=== PATIENT | male | born 1950 | race Caucasian/White ===

== ENCOUNTER 2017-02-19 05:17 | Inpatient (IN) | payer OTHER ==
[~2017-02-19] VITALS: Ht 170.2 cm; Wt 70.3 kg
[~2017-02-19 05:17] MED LIST: ASPIRIN EC81 M1 PO; ATORVASTATIN CA40 M1 PO; BACTRIM 400-801 EACH PO; CELLCEPT250 MG PO; FLOMAX0.4 M1 PO; LABETALOL HCL100 M1 PO; MAGNESIUM400 M1 PO; NORVASC5 M1 PO; PEPCID40 M1 PO; PREDNISONE5 M1 PO; PROGRAF1 M1 PO
--- NOTE | 2017-02-19 10:05 | Admission Core Measures ---
Admission Meds I reviewed the following Meds: Current Medications Sig/Isaiah Start time Last Medication Dose Stop Time Status Admin Acetaminophen 975 MG ONCE 02/19 0000 NR (Tylenol) 02/19 2359 Cefazolin Sodium 2,000 MG ONCE 02/19 0000 NR (Kefzol-Ancef Inj) 02/19 2359 Oxycodone HCl 10 MG ONCE 02/19 0000 NR (Roxicodone) 02/19 2359 Acute Coronary Syndrome Inclusion Criteria ACS Diagnosis No Inpatient Core Measures LDL Reminder: If No, please order W/I first 24hr of stay Congestive Heart Failure Inclusion Criteria CHF Diagnosis No Cerebrovascular accident Inclusion Criteria CVA/TIA Diagnosis No Inpatient Core Measures Bedside Swallow Eval Reminder: If BSE failed, place ST order Antithrombotic Reminder: Order Antithrombotic Medication by end of day 2 Antithrombotic Reminder: Document Reason Antithrombotic Not ordered by end of day 2 AFIB/Flutter Reminder: If Present, add to problem list AFIB/Flutter Reminder: Order Anticoag Medication for pts with AFIB/Flutter Atherosclerosis Reminder: If Present, add to problem list LDL Reminder: If No, please order W/I first 24hr of stay PT Order Reminder: If No, please order Venous thromboembolism Inpatient Core Measures VTE Risk Factors: Age > 40, Surgery No [facility] VTE prophylaxis d/t No contraindications No VTE Pharm Prophylaxis d/t No contraindications Inclusion Criteria - Per Current guidelines, there needs to be overlap - treatment for the first 5 days of Warfarin therapy. - Parenteral Anticoagulation (IV or SC) needs to be - given along with Warfarin therapy. VTE Diagnosis No VTE Type NONE VTE Confirmed by (Test) NONE Problem List As ranked by this Provider includes Assessment & Plan 1. Status post total hip replacement, right HOME MEDS Home Med List Amlodipine Besylate 5 MG TABLET 1 TAB PO BID HTN (Reported) Aspirin (Ecotrin*) 81 MG TABLET.DR 1 TAB PO BID PROPHO (Reported) Atorvastatin Calcium 40 MG TABLET 1 TAB PO BID CHOLESTEROL (Reported) Famotidine (Pepcid) 40 MG TABLET 1 TAB PO DAILY PRN GERD (Reported) Labetalol HCl 100 MG TABLET 1.5 TAB PO BID HTN (Reported) Magnesium Oxide (Magnesium) 400 MG CAPSULE 1 CAP PO BID HYPOMAGNESIUM ( Reported) Mycophenolate Mofetil 250 MG CAPSULE 3 CAP PO BID KIDNEY TRANSPLANT (Reported ) Prednisone 5 MG TABLET 1 TAB PO DAILY KIDNEY TRANSPLANT (Reported) Sulfamethoxazole/Trimethoprim (Bactrim 400-80 MG Tablet) 400 MG-80 MG TABLET 1 TAB PO DAILY KIDNEY TRANSPLANT (Reported) Tacrolimus (Prograf) 1 MG CAPSULE 2 CAP PO BID KIDNEY TRANSPLANT (Reported) Tamsulosin HCl (Flomax) 0.4 MG CAP.ER.24H 1 CAP PO DAILY KIDNEY TRANSPLANT ( Reported)
[2017-02-19] MEDS ORDERED: ASPIRIN EC81 M1 PO (10:43)
[2017-02-19] MEDS ORDERED: COLACE100 M1 PO (10:43)
[2017-02-19] MEDS ORDERED: MS CONTIN15 M2 PO (10:43)
[2017-02-19] MEDS ORDERED: DILAUDID2 M1 PO (10:43)
[2017-02-19] MEDS ORDERED: MIRALAX17 G1 PO (10:43)
--- NOTE | 2017-02-19 10:47 | Patient Discharge Instructions ---
Discharge Instructions General Discharge Information You were seen/treated for: Right hip degenerative joint disease You had these procedures: Right total hip arthroplasty Watch for these problems: Significantly increased pain, difficulty in breathing, or temperatures over 101 Increased redness or drainage from incision No bath, but you may shower: Yes Other wound care: Daily dry dressing change Special Instructions: See preprinted information booklet Diet Continue normal diet: Yes Activity Activity Self Limited: Yes Other activity limits: Ambulate using a walker as instructed by physical therapy No driving until okay with your surgeon and off all pain medications Acute Coronary Syndrome Inclusion Criteria At DC or during hospital stay patient has or had the following: ACS DIAGNOSIS No Discharge Core Measures Meds if any: Prescribed or Continued at Discharge Meds if any: NOT Prescribed or Continued at Discharge Congestive Heart Failure Inclusion Criteria At DC or during hospital stay patient has or had the following: CHF DIAGNOSIS No Discharge Core Measures Meds if any: Prescribed or Continued at Discharge Meds if any: NOT Prescribed or Continued at Discharge Cerebrovascular accident Inclusion Criteria At DC or during hospital stay patient has or had the following: CVA/TIA Diagnosis No Discharge Core Measures Meds if any: Prescribed or Continued at Discharge Meds if any: NOT Prescribed or Continued at Discharge Venous thromboembolism Inclusion Criteria VTE Diagnosis No VTE Type NONE VTE Confirmed by (Test) NONE Discharge Core Measures - Per Current guidelines, there needs to be overlap - treatment for the first 5 days of Warfarin therapy. - If discharged on Warfarin prior to 5 days of - overlap therapy, the patient will need to be - assessed for post discharge needs including - *Post discharge parental anticoagulation - *Warfarin and/or parental anticoagulation education - *Follow up date to check INR post discharge At least 5 days overlap therapy as Inpatient No Meds if any: Prescribed or Continued at Discharge Note: Overlap Therapy is Warfarin and Anticoagulant Meds if any: NOT Prescribed or Continued at Discharge
--- NOTE | 2017-02-19 13:38 | RADIOLOGY REPORT ---
EXAMINATION: XR HIP, RIGHT CLINICAL INFORMATION: Right hip replacement COMPARISON: None TECHNIQUE: Two views of the right hip. FINDINGS: Prosthetic components of the right total hip arthroplasty are appropriately aligned. No periprosthetic fracture. Gas from recent surgery is present in the surrounding soft tissues. There is a drain in place in the lateral soft tissues. IMPRESSION: Normal postoperative appearance of the right total hip prosthesis.
--- NOTE | 2017-02-19 13:46 | Cons- Medical ---
LES STEVEN MD,JAKOB 02/19/17 1345: General Information and HPI Consulting Request Date of Consult: 02/19/17 Requested By: SONAM ALEXANDRA MD Reason for Consult: Postoperative medical optimization Source of Information: patient, old records Exam Limitations: no limitations History of Present Illness: 66-year-old man with past medical history significant for ankylosing spondylitis , status post kidney transplant August 2016, benign prostatic hyperplasia, hypertension and hyperlipidemia admitted to [facility] for Right hip replacement. According to the patient he started having right-sided hip pain in spring 2015 and has been using cane to walk around since April 2016. He was recommended by his primary care doctor to get an evaluation for his right hip pain by orthopedics. Patient is currently status post right hip replacement day 0 and postoperative x-ray shows, Normal postoperative appearance of the right total hip prosthesis. Review of system was negative for any headaches, acute visual change, chest pain , limitations, shortness of breath, vomiting, abdominal pain, fever, rash, or lower extremity edema. Allergies/Medications Allergies: Coded Allergies: No Known Allergies (02/17/17) Current Medications: Current Medications Sig/Isaiah Start time Last Medication Dose Route Stop Time Status Admin Acetaminophen 0 .STK-MED ONE 02/19 1009 DC PO Acetaminophen 975 MG ONCE 02/19 0000 NR PO 02/19 2359 Cefazolin Sodium 2,000 MG ONCE 02/19 0000 NR IV 02/19 2359 Oxycodone HCl 0 .STK-MED ONE 02/19 1009 DC PO Oxycodone HCl 10 MG ONCE 02/19 0000 NR PO 02/19 2359 Review of Systems Review of Systems Constitutional: Denies: chills, fever. EENTM: Denies: visual changes. Cardiovascular: Denies: chest pain, palpitations. Respiratory: Denies: cough, short of breath. GI: Denies: abdominal pain, nausea, vomiting. Genitourinary: Denies: discharge. Musculoskeletal: Denies: back pain, muscle pain. Skin: Denies: erythema. All Other Systems: Reviewed and Negative Past History Medical History Cardiovascular: hypertension, hyperlipidemia Renal: renal transplant Other Medical Hx: Benign prostatic hyperplasia Surgical History Surgical History: hip replacement Family History Relations & Conditions If Any: MOTHER FH: lung cancer FATHER FH: myocardial infarction, Onset: 60+. Psychosocial History Where Do You Live? Home Who Do You Live With? spouse Services at Home: None Primary Language: Ukrainian Smoking Status: Never Smoked ETOH Use: SOCIAL Illicit Drug Use: denies illicit drug use Functional Ability ADLs Independent: dressing, eating, toileting, bathing. Ambulation: cane IADLs Independent: telephone, medication admin. Employment History Profession/Employer: [employer] Exam & Diagnostic Data Last 24 Hrs of Vital Signs/I&O Vital Signs Date Time Temp Pulse Resp B/P B/P Pulse O2 O2 Flow FiO2 Mean Ox Delivery Rate 02/19 1642 65 130/70 02/19 1641 65 130/70 02/19 1615 97.7 53 20 130/64 98 Room Air 02/19 1415 97.7 65 18 138/78 97 Nasal 1.0L Cannula Physical Exam General Appearance: well developed/nourished, no apparent distress, alert, awake , comfortable Head: atraumatic Eyes: Bilateral: normal appearance. Neck: normal inspection, supple Respiratory: normal breath sounds, no respiratory distress, lungs clear Cardiovascular: regular rate/rhythm Gastrointestinal: soft, non-tender Extremities: normal inspection, Right Hip dressing Skin: normal color, warm/dry Last 24 Hrs of Labs/Yohannes: No current labs Diagnostic Data Other Results Normal postoperative appearance of the right total hip prosthesis. Assessment/Plan Assessment/Plan 66-year-old man with past medical history significant for ankylosing spondylitis , status post kidney transplant August 2016, benign prostatic hyperplasia, hypertension and hyperlipidemia admitted to [facility] for Right hip replacement. Medical team is consulted for medical comanagement. Status post right total hip replacement Current pain score 4 Continue with appropriate analgesics as per surgical team recommendations Currently on Zofran when necessary for nausea, watch for QTC prolongation if patient requires Zofran frequently Bowel regimen at all times to prevent narcotic induced constipation DVT prophylaxis as per surgical team recommendations Advanced diet as tolerated Physical therapy as appropriate Order CBC/BEP for tomorrow History of renal TRANSPLANT Patient has past medical history significant for recent renal transplant in August 2016. Currently on Tacrolimus, mycophenolate, Bactrim SS and stereoids Maintain strict input/output Gentle IV hydration History of ankylosing spondylitis Patient has long-standing history of ankylosing spondylitis which was diagnosed earlier in . Provide appropriate Physical therapy History of hypertension Patient has past medical history significant for hypertension. Current blood pressure 130/64. Restart home medications which include amlodipine 10 mg and labetalol 300 mg by mouth twice a day. Hold off on antihypertensive medications if blood pressure less than 90/60. History of dyslipidemia Patient is currently on 40 mg Lipitor twice a day. Since patient does not have any medical history of coronary artery disease, moderate to low intensity statin at 40 mg daily dose should be enough. Kindly confirm the dosage. History of benign prostatic hyperplasia Continue with 0.4 mg of tamsulosin Patient is full code Patient is on pain management Diet as tolerated Problem List: 1. Status post total hip replacement, right Copies To: ROGELIO CARRILLO MD Consult Acknowledgment - Thank you for your consult request. ROGELIO CARRILLO MD 02/20/17 0751: General Information and HPI Consulting Request Requested By: SONAM ALEXANDRA MD Source of Information: patient, family Exam Limitations: no limitations Allergies/Medications Home Med List: Amlodipine Besylate (Norvasc) 5 MG TABLET 5 MG PO BID BLOOD PRESSURE ( Reported) Aspirin (Ecotrin*) 81 MG TABLET.DR 1 TAB PO BID PROPHO (Reported) Aspirin (Ecotrin*) 81 MG TABLET.DR 2 TAB PO BID BLOOD THINNER Atorvastatin Calcium 40 MG TABLET 1 TAB PO BID CHOLESTEROL (Reported) Docusate Sodium (Colace) 100 MG CAPSULE 1 CAP PO BID CONSTIPATION Famotidine (Pepcid) 40 MG TABLET 1 TAB PO DAILY PRN GERD (Reported) Hydromorphone HCl (Dilaudid) 2 MG TABLET 1-2 TAB PO Q4-6 PRN PAIN Labetalol HCl 100 MG TABLET 150 MG PO BID blood pressure control (Reported) Magnesium Oxide (Magnesium) 400 MG CAPSULE 1 CAP PO BID HYPOMAGNESIUM ( Reported) Morphine Sulfate (Ms Contin) 15 MG TABLET.ER 1 TAB PO Q12 PRN PAIN Mycophenolate Mofetil (Cellcept) 250 MG CAPSULE 2 CAP PO BID transplant ( Reported) Polyethylene Glycol 3350 (Miralax) 17 GRAM POWD.PACK 1 PAC PO DAILY CONSTIPATION dissolve in water Prednisone 5 MG TABLET 1 TAB PO DAILY KIDNEY TRANSPLANT (Reported) Sulfamethoxazole/Trimethoprim (Bactrim 400-80 MG Tablet) 400 MG-80 MG TABLET 1 TAB PO DAILY KIDNEY TRANSPLANT (Reported) Tacrolimus (Prograf) 1 MG CAPSULE 1 MG PO BID TRANSPLANT (Reported) Tamsulosin HCl (Flomax) 0.4 MG CAP.ER.24H 1 CAP PO DAILY KIDNEY TRANSPLANT ( Reported) Current Medications: Current Medications Sig/Isaiah Start time Last Medication Dose Route Stop Time Status Admin Acetaminophen 1,000 MG Q8 02/19 1400 DC 02/20 IV 02/20 0601 0605 Acetaminophen 0 .STK-MED ONE 02/19 1009 DC PO Acetaminophen 975 MG ONCE 02/19 0000 DC PO 02/19 2359 Amlodipine Besylate 10 MG BID 02/19 2200 CAN PO Amlodipine Besylate 10 MG BID 02/19 2200 CAN PO Amlodipine Besylate 5 MG BID 02/19 2200 AC 02/20 PO 0631 Aspirin 162 MG BID 02/19 2200 AC 02/19 PO 2126 Atorvastatin Calcium 40 MG BID 02/19 2200 AC 02/19 PO 1843 Cefazolin Sodium 1,000 MG IQ8 02/19 1600 DC 02/19 IV 02/20 0001 2303 Cefazolin Sodium 2,000 MG ONCE 02/19 0000 DC IV 02/19 2359 Dextrose/Sodium 1,000 ML .Q20H 02/19 1415 AC 02/19 Chloride IV 1452 Docusate Sodium 100 MG BID 02/19 2200 AC 02/19 PO 2126 Famotidine 20 MG DAILY 02/20 1000 AC PO Fentanyl Citrate 250 MCG .STK-MED ONE 02/19 0953 DC IM 02/19 0954 Fentanyl Citrate 100 MCG .STK-MED ONE 02/19 0943 DC IM 02/19 0944 Hydrocortisone 100 MG .STK-MED ONE 02/19 0953 DC Sodium Succinate IM 02/19 0954 Hydromorphone HCl 2 MG Q4P PRN 02/19 1415 AC 02/19 PO 2304 Hydromorphone HCl 4 MG Q4P PRN 02/19 1415 AC 02/20 PO 0414 Hydromorphone HCl 2 MG .STK-MED ONE 02/19 1316 DC IM 02/19 1317 Hydromorphone HCl 2 MG .STK-MED ONE 02/19 1036 DC IM 02/19 1037 Labetalol HCl 150 MG BID 02/190 DC PO Labetalol HCl 300 MG BID 02/19 2200 DC 02/19 PO 1642 Labetalol HCl 300 MG BID 02/19 2200 CAN PO Labetalol HCl 150 MG BID 02/19 2200 AC 02/20 PO 0631 Magnesium Oxide 400 MG BID 02/19 2200 AC 02/19 PO 2126 Midazolam HCl 5 MG .STK-MED ONE 02/19 0942 DC IM 02/19 0943 Morphine Sulfate 2 MG Q2P PRN 02/19 1415 AC 02/20 IV 0634 Mycophenolate Mofetil 1,000 MG BID 02/19 2200 CAN PO Mycophenolate Mofetil 500 MG BID 02/19 2200 AC 02/20 PO 0608 Ondansetron HCl 4 MG Q6P PRN 02/19 1415 AC 02/19 IV 1452 Oxycodone HCl 0 .STK-MED ONE 02/19 1009 DC PO Oxycodone HCl 10 MG ONCE 02/19 0000 DC PO 02/19 2359 Polyethylene Glycol 17 GM DAILY 02/20 1000 AC PO Prednisone 5 MG DAILY 02/20 1000 AC PO Promethazine HCl 12.5 MG Q6P PRN 02/19 1415 AC IV 02/26 1014 Tacrolimus 4 MG BID 02/19 2200 CAN PO Tacrolimus 1 MG BID 02/19 2200 AC 02/20 PO 0607 Tamsulosin HCl 0.4 MG DAILY 02/19 1021 AC 02/19 PO 1842 Tranexamic Acid 2,000 MG .STK-MED ONE 02/19 0942 DC IV 02/19 0943 Trimethoprim/ 1 TAB DAILY 02/20 1000 AC Sulfamethoxazole PO Review of Systems Review of Systems Constitutional: Reports: no symptoms. EENTM: Reports: no symptoms. Cardiovascular: Reports: no symptoms. Respiratory: Reports: no symptoms. GI: Reports: no symptoms. Genitourinary: Reports: no symptoms. Musculoskeletal: Reports: see HPI. Skin: Reports: no symptoms. Neurological/Psychological: Reports: no symptoms. Past History Travel History Traveled to [place] past 21 day No Medical History EENT: NONE Cardiovascular: hypertension, hyperlipidemia Renal: renal transplant Surgical History Surgical History: hip replacement Psychosocial History Where Do You Live? Home Who Do You Live With? spouse Smoking Status: Never Smoked ETOH Use: SOCIAL Illicit Drug Use: denies illicit drug use Exam & Diagnostic Data Last 24 Hrs of Vital Signs/I&O Vital Signs Date Time Temp Pulse Resp B/P B/P Pulse O2 O2 Flow FiO2 Mean Ox Delivery Rate 02/20 0631 66 132/74 02/20 0631 66 132/74 02/20 0412 98.7 66 20 132/74 98 Room Air 06/15 0053 97.8 56 20 100/50 97 Room Air 02/19 2156 Room Air 02/19 2023 97.8 60 20 130/60 100 Room Air 02/19 1843 65 130/78 02/19 1843 65 130/78 02/19 1842 65 130/78 02/19 1829 97.6 52 20 120/62 97 Room Air 02/19 1642 65 130/70 02/19 1615 97.7 53 20 130/64 98 Room Air 02/19 1415 97.7 65 18 138/78 97 Nasal 1.0L Cannula Intake & Output 02/20 0800 02/20 0000 02/19 1600 Intake Total 940 760 Output Total 765 290 5636 Balance -5 210 -1200 Intake, IV 500 400 Intake, Oral 440 360 Output, 120 70 Drainage Output, Urine 211 562 6119 Patient 155 lb Weight Physical Exam General Appearance: well developed/nourished, no apparent distress, alert, awake , comfortable Head: atraumatic Eyes: Bilateral: normal appearance. Neck: normal inspection, supple Respiratory: no respiratory distress, lungs clear Cardiovascular: regular rate/rhythm Gastrointestinal: normal bowel sounds, soft, non-tender Extremities: normal inspection Skin: normal color, warm/dry Last 24 Hrs of Labs/Yohannes: Laboratory Tests 02/20/17 0605: Sodium Pending, Potassium Pending, Chloride Pending, Carbon Dioxide Pending, Anion Gap Pending, BUN Pending, Creatinine Pending, BUN/Creatinine Ratio Pending , Glucose Pending, Magnesium Pending, CBC w Diff Pending, WBC Pending, RBC Pending, Hgb Pending, Hct Pending, MCV Pending, MCH Pending, RDW Pending, Plt Count Pending, MPV Pending, PUBS MCHC Pending Assessment/Plan Consult Acknowledgment - Thank you for your consult request. Attending MD Review Statement Attending Statement Attending MD Statement: examined this patient, discuss w/resident/PA/V BLOCK SAW OPERATOR, agreed w/resident/PA/V BLOCK SAW OPERATOR, discussed with family, reviewed EMR data (avail), discussed with nursing, amended to note Attending Assessment/Plan: This patient is a 66 y/o wm s/p hip replacment with a history of reanl transplant. Currently doing well with minimal nausea and pain. Reviewed his home meds adn have discussed with patient what he is taking (diferent from labeled bottles). Meds adjusted adn will watch closely. I was present for the entire resident H&P.
[2017-02-19 14:15] VITALS: BP 138/78
--- NOTE | 2017-02-19 16:07 | PN- Orthopedic ---
Subjective Subjective: POST-OP NOTE: Reports expected incisional pain, right thigh. Nauseous earlier, but currently trying some food. Out of bed to chair. No dizziness. No shortness of breath. No chest pains. Objective Vital Signs and I&Os Vital Signs Date Time Temp Pulse Resp B/P B/P Pulse O2 O2 Flow FiO2 Mean Ox Delivery Rate 02/19 1415 97.7 65 18 138/78 97 Nasal 1.0L Cannula Physical Exam: General - alert & oriented x 3. comfortable. out of bed to chair. Lungs - clear bilaterally. no w/r/r. Cardiac - s1s2 Abdomen - soft. nontender. Extremities - warm bilaterally. right hip dressing c/d/i. no hematoma. hemovac drain in place with scant amount of bloody drainage. calves soft and nontender b /l. nvi. Current Medications: Current Medications Sig/Isaiah Start time Last Medication Dose Route Stop Time Status Admin Acetaminophen 1,000 MG Q8 02/19 1400 AC 02/19 IV 02/20 0601 1555 Acetaminophen 0 .STK-MED ONE 02/19 1009 DC PO Acetaminophen 975 MG ONCE 02/19 0000 DC PO 02/19 2359 Amlodipine Besylate 10 MG BID 02/19 2200 AC PO Amlodipine Besylate 10 MG BID 02/19 2200 UNVr PO Aspirin 162 MG BID 02/19 220 AC PO Atorvastatin Calcium 40 MG BID 02/19 220 AC PO Cefazolin Sodium 1,000 MG IQ8 02/19 1600 AC IV 02/20 0001 Cefazolin Sodium 2,000 MG ONCE 02/19 0000 DC IV 02/19 2359 Dextrose/Sodium 1,000 ML .Q20H 02/19 1415 r 02/19 Chloride IV 1452 Docusate Sodium 100 MG BID 02/19 2200 AC PO Famotidine 20 MG DAILY 02/20 1000 AC PO Hydromorphone HCl 2 MG Q4P PRN 02/19 1415 AC 02/19 PO 1452 Hydromorphone HCl 4 MG Q4P PRN 02/19 1415 AC PO Labetalol HCl 150 MG BID 02/19 2200 DC PO Labetalol HCl 300 MG BID 02/19 2200 UNVr PO Magnesium Oxide 400 MG BID 02/19 2200 AC PO Morphine Sulfate 2 MG Q2P PRN 02/19 1415 AC IV Mycophenolate Mofetil 1,000 MG BID 02/19 2200 AC PO Ondansetron HCl 4 MG Q6P PRN 02/19 1415 AC 02/19 IV 1452 Oxycodone HCl 0 .STK-MED ONE 02/19 1009 DC PO Oxycodone HCl 10 MG ONCE 02/19 0000 DC PO 02/19 2359 Polyethylene Glycol 17 GM DAILY 02/20 1000 AC PO Prednisone 5 MG DAILY 02/20 1000 AC PO Promethazine HCl 12.5 MG Q6P PRN 02/19 1415 AC IV 02/26 1014 Tacrolimus 4 MG BID 02/19 2200 AC PO Tamsulosin HCl 0.4 MG DAILY 02/19 1021 AC PO Trimethoprim/ 1 TAB DAILY 02/20 1000 AC Sulfamethoxazole PO Assessment/Plan Assessment/Plan This 66 year old white male with hx htn, hld, bph, gerd, hx renal transplant, steff, hyperparathyroidism, is POD#0 s/p right total hip replacement advance diet as tolerated decrease iv fluid rate, maintain overnight @ 50 mls/hr pain control as ordered marisol-operative ancef x 2 doses asa 162 bid - dvt ppx monitor hemovac drain output home meds reviewed / entered into cmr continue PT, wbat f/u am labs appreciate input from medical team will d/w Core Measures/Miscellaneous Venous Thromboembolism VTE Risk Factors: Age > 40, Surgery VTE Contraindications: No Contraindications VTE Diagnosis: No VTE Type: NONE VTE Confirmed by (Test): NONE Beta Teresita Is Beta Teresita a Home Med? Yes If Yes, Was This Ordered Today? Yes Antibiotics Is Patient on Antibiotics? Yes If Yes: prophylaxis
[2017-02-19 16:15] VITALS: BP 130/64
[2017-02-19 18:29] VITALS: BP 120/62
--- NOTE | 2017-02-19 19:11 | Operative Report ---
Operative/Inv Procedure Report Surgery Date: 02/19/17 Name of Procedure: Right total hip replacement Pre-Operative Diagnosis: Right Hip avascular necrosis Post-Operative Diagnosis: Same Estimated Blood Loss: 300 Surgeon/Scale Tester: SONAM ALEXANDRA MD Anesthesia: general endotracheal tube Operative/Procedure Note Note: Description of Procedure: The patient was taken to the operating room and positively identified. After induction of spinal anesthesia and administration of appropriate pre-operative antibiotics, the patient was positioned supine on the operating room table and all bony prominences were well padded. After performing a surgical timeout, the right lower extremity was prepped and draped in the usual sterile fashion. A direct anterior approach was made to the right hip. The incision was carried sharply through superficial soft tissues to the level of the fascia. Meticulous hemostasis was maintained with Bovie electocautery. The fascia over the tensor fascia tiffani muscle was opened sharply and the interval between the TFL and the sartorius was entered bluntly taking care to stay lateral to the lateral femoral cutaneous nerve. Retractors were placed around the femoral neck and the pericapsular fat was identified. The ascending branches of the lateral femoral circumflex vessels were identified and carefully coagulated. The pericapsular fat and anterior capsule were then resected. A napkin ring osteotomy was performed and the femoral head was removed without difficulty. Attention was then turned to the acetabulum. After appropriate placement of retractors, the acetabulum was exposed. Soft tissue was cleaned from the acetabular margin and notch. Overhanging osteophytes were removed and the teardrop was exposed. The acetabulum was then sequentially reamed to accept a 54 mm Liberty Tritanium hemispherical solid back shell. This was impacted into place in the appropriate position and fitted with a 36 mm Trident X3 zero degree polyethylene insert. Attention was then turned to the femur. After performing the appropriate ligament releases, the proximal femur was exposed. It was then sequentially broached to accept a size 5 Liberty Accolade 2 stem. This was trialed for leg length and stability. The trial component was removed and the final component was impacted into place. The trunnion was carefully cleaned and fit with a 36 mm, -5 Biolox delta ceramic femoral head. The hip was reduced and put through a full range of motion and found to be stable. The articular space was then irrigated with sterile saline. The periarticular soft tissues were infilitrated with Marcaine. The fascial layer was closed with interrupted #1 vicryl suture and the skin was re-approximated with interrupted 2 -0 vicryl. The skin was closed with a running 3-0 V-Lock suture. Steri-strips and a sterile dressing were applied. The patient was awakened and taken to the recovery room in satisfactory condition.
--- NOTE | 2017-02-19 19:49 | NUR ---
14:10- PT ARRIVED TO FLOOR VIA STRETCHER FROM PACU. REPORT RECEIVED FROM [employer] SUPERVISOR. PT A/V/OX3. VSS. PHYSICAL THERAPY WALKED PT FROM STRETCHER TO ROOM WITH ROLLING WALKER. HEMOVAC IN PLACE. DRESSING C,D,I. R LE WITH + PEDAL AND POST TIBIAL PULSES. PAIN 3/10. VSS. ORIENTED TO ROOM AND CALL LIGHT FOR ASSIST.
--- NOTE | 2017-02-19 19:56 | NUR ---
1430- O2 SAT 100% ON 2L NC. O2 DECREASE TO 1L NC 1445- O2 SAT 99% ON 1L NC. PT PUT ON RA. 1500- O2 SAT 99% ON RA. 1530- 02 SAT 99% ON RA.
[2017-02-19 20:23] VITALS: BP 130/60
[2017-02-20 00:53] VITALS: BP 100/50
[2017-02-20 04:12] VITALS: BP 132/74
--- NOTE | 2017-02-20 07:40 | PN- Medicine Consult ---
LES STEVEN MD,JAKOB 02/20/17 0740: Assessment/Plan Assessment/Plan Assessment: 66-year-old man with past medical history significant for ankylosing spondylitis , status post kidney transplant August 2016, benign prostatic hyperplasia, hypertension and hyperlipidemia admitted to [facility] for Right hip replacement. Medical team is consulted for medical comanagement. Vitals overnight, patient afebrile, no tachycardia or tachypnea overnight, systolic blood pressure 112-118 and diastolic 52-62, oxygen saturation of 95-99% on room air Labs showed WBC count of 3.2, ANC of 2400, hemoglobin 10.4 and hematocrit 31.2, platelet count of 139, no significant electrolyte abnormality. Patient is currently status post right hip replacement day 1 Plan: Patient is admitted under surgical team for the management of folowing problems Status post right total hip replacement Current pain score 2 Continue with appropriate analgesics as per surgical team recommendations Currently on Zofran when necessary for nausea, watch for QTC prolongation if patient requires Zofran frequently Bowel regimen at all times to prevent narcotic induced constipation, patient did not have a bowel movement overnight. DVT prophylaxis as per surgical team recommendations Patient is on regular diet Physical therapy was performed today and patient tolerated it well. I/O -1410 Order CBC/BEP for tomorrow History of renal TRANSPLANT Patient has past medical history significant for recent renal transplant in August 2016. Currently on Tacrolimus, mycophenolate, Bactrim SS and stereoids Maintain strict input/output We can discontinue IV hydration as patient has appropriate by mouth intake History of ankylosing spondylitis Continue with appropriate Physical therapy History of hypertension Current blood pressure 118/62. Continue home dose antihypertensive medications. Hold off on antihypertensive medications if blood pressure less than 90/60. History of dyslipidemia Patient is currently on 40 mg Lipitor twice a day. Since patient does not have any medical history of coronary artery disease, moderate to low intensity statin at 40 mg daily dose should be enough. Kindly confirm the dosage. History of benign prostatic hyperplasia Continue with 0.4 mg of tamsulosin Patient is full code Patient is on pain management Diet as tolerated Problem List: 1. Status post total hip replacement, right Subjective Subjective: Subjectively, patient did not have any acute complaints. Overnight he slept well. Pain is well controlled. No episodes of vomiting or dry heaves. Patient was alert and oriented to time person and place not in any acute distress comfortably sitting in the recliner Review of Systems Constitutional: Denies: chills, fever. EENTM: Denies: visual changes. Cardiovascular: Denies: chest pain, palpitations. Respiratory: Denies: cough, short of breath. Gastrointestinal: Denies: abdominal pain, nausea, vomiting. Genitourinary: Denies: discharge. Objective Last 24 Hrs of Vital Signs/I&O Vital Signs Date Time Temp Pulse Resp B/P B/P Pulse O2 O2 Flow FiO2 Mean Ox Delivery Rate 02/20 1152 97.4 62 20 112/52 99 Room Air 02/20 0949 61 118/62 02/20 0800 98.1 61 20 118/62 95 Room Air 02/20 0631 66 132/74 02/20 0631 66 132/74 02/20 0412 98.7 66 20 132/74 98 Room Air 02/20 0053 97.8 56 20 100/50 97 Room Air 02/19 2156 Room Air 02/19 2023 97.8 60 20 130/60 100 Room Air 02/19 1843 65 130/78 02/19 1843 65 130/78 02/19 1842 65 130/78 02/19 1829 97.6 52 20 120/62 97 Room Air 02/19 1642 65 130/70 02/19 1615 97.7 53 20 130/64 98 Room Air 02/19 1415 97.7 65 18 138/78 97 Nasal 1.0L Cannula Intake & Output 02/20 1600 02/20 0800 02/20 0000 Intake Total 940 760 Output Total 945 2170 Balance -5 -1410 Intake, IV 500 400 Intake, Oral 440 360 Output, 120 70 Drainage Output, Urine 825 2100 Patient 155 lb Weight Physical Exam General Appearance: well developed/nourished, no apparent distress, alert, awake , comfortable Head: atraumatic Neck: normal inspection Cardiovascular: regular rate/rhythm, edema, gallop Respiratory: normal breath sounds, chest non-tender, no respiratory distress, lungs clear Abdomen: normal bowel sounds, soft, non-tender Extremities: no edema Current Medications: Current Medications Sig/Isaiah Start time Last Medication Dose Route Stop Time Status Admin Acetaminophen 1,000 MG Q8 02/19 1400 DC 02/20 IV 02/20 0601 0605 Acetaminophen 975 MG ONCE 02/19 0000 DC PO 02/19 2359 Amlodipine Besylate 10 MG BID 02/19 220 CAN PO Amlodipine Besylate 10 MG BID 02/19 220 CAN PO Amlodipine Besylate 5 MG BID 02/19 220 AC 02/20 PO 0631 Aspirin 162 MG BID 02/19 220 AC 02/20 PO 0948 Atorvastatin Calcium 40 MG BID 02/19 2200 AC 02/20 PO 0949 Cefazolin Sodium 1,000 MG IQ8 02/19 1600 DC 02/19 IV 02/20 0001 2303 Cefazolin Sodium 2,000 MG ONCE 02/19 0000 DC IV 02/19 2359 Dextrose/Sodium 1,000 ML .Q20H 02/19 1415 DC 02/19 Chloride IV 1452 Docusate Sodium 100 MG BID 02/19 2200 AC 02/20 PO 0949 Famotidine 20 MG DAILY 02/20 1000 AC 02/20 PO 0949 Hydromorphone HCl 2 MG Q4P PRN 02/19 1415 AC 02/20 PO 0948 Hydromorphone HCl 4 MG Q4P PRN 02/19 1415 AC 02/20 PO 0414 Labetalol HCl 150 MG BID 02/19 2200 DC PO Labetalol HCl 300 MG BID 02/19 2200 DC 02/19 PO 1642 Labetalol HCl 300 MG BID 02/19 2200 CAN PO Labetalol HCl 150 MG BID 02/19 220 AC 02/20 PO 0631 Magnesium Oxide 400 MG BID 02/19 2200 AC 02/20 PO 0949 Morphine Sulfate 2 MG Q2P PRN 02/19 1415 AC 02/20 IV 0634 Mycophenolate Mofetil 1,000 MG BID 02/19 220 CAN PO Mycophenolate Mofetil 500 MG BID 02/19 2200 AC 02/20 PO 0608 Ondansetron HCl 4 MG Q6P PRN 02/19 1415 AC 02/19 IV 1452 Oxycodone HCl 10 MG ONCE 02/19 0000 DC PO 02/19 2359 Polyethylene Glycol 17 GM DAILY 02/20 1000 AC 02/20 PO 0949 Prednisone 5 MG DAILY 02/20 1000 AC 02/20 PO 0949 Promethazine HCl 12.5 MG Q6P PRN 02/19 1415 AC IV 02/26 1014 Tacrolimus 4 MG BID 02/19 2200 CAN PO Tacrolimus 1 MG BID 02/19 2200 AC 02/20 PO 0607 Tamsulosin HCl 0.4 MG DAILY 02/19 1021 AC 02/20 PO 0949 Trimethoprim/ 1 TAB DAILY 02/20 1000 AC 02/20 Sulfamethoxazole PO 0948 Results Last 24 Hrs Lab/Yohannes Results: Laboratory Tests 02/20/17 0605: Anion Gap 6, Estimated GFR > 60, BUN/Creatinine Ratio 25.0, Glucose 119 H, Magnesium 1.7, CBC w Diff MAN DIFF ORDERED, RBC 3.41 L, MCV 91.3, MCH 30.4, RDW 14.8 H, MPV 8.1, Gran % 75.7 H, Lymphocytes % 18.4 L, Monocytes % 3.6, Eosinophils % 1.8, Basophils % 0.5, Absolute Granulocytes 2.4, Segmented Neutrophils 44, Band Neutrophils 6 H, Absolute Lymphocytes 0.6 L, Lymphocytes 33, Monocytes 16 H, Absolute Monocytes 0.1 L, Absolute Eosinophils 0.1, Absolute Basophils 0, Metamyelocytes 1, Platelet Estimate DECREASED, Hypochromic -Microcytic 1+, Anisocytosis 1+, PUBS MCHC 33.3 ROGELIO CARRILLO MD 02/20/17 1652: Subjective Review of Systems Constitutional: Denies: chills, fever. EENTM: Denies: visual changes. Cardiovascular: Denies: chest pain, palpitations. Respiratory: Reports: no symptoms. Gastrointestinal: Reports: no symptoms. Genitourinary: Reports: no symptoms. Musculoskeletal: Reports: see HPI. Objective Last 24 Hrs of Vital Signs/I&O Vital Signs Date Time Temp Pulse Resp B/P B/P Pulse O2 O2 Flow FiO2 Mean Ox Delivery Rate 02/20 1611 99.1 67 20 128/60 98 Room Air 02/20 1152 97.4 62 20 112/52 99 Room Air 02/20 0949 61 118/62 02/20 0800 98.1 61 20 118/62 95 Room Air 02/20 0631 66 132/74 02/20 0631 66 132/74 02/20 0412 98.7 66 20 132/74 98 Room Air 02/20 0053 97.8 56 20 100/50 97 Room Air 02/19 2156 Room Air 02/19 2023 97.8 60 20 130/60 100 Room Air 02/19 1843 65 130/78 02/19 1843 65 130/78 02/19 1842 65 130/78 02/19 1829 97.6 52 20 120/62 97 Room Air Intake & Output 02/20 1600 02/20 0800 02/20 0000 Intake Total 820 940 760 Output Total 054 637 5324 Balance 220 -5 -1410 Intake, IV 100 500 400 Intake, Oral 720 440 360 Output, 120 70 Drainage Output, Urine 842 764 5421 Patient 155 lb Weight Physical Exam General Appearance: no apparent distress, alert, awake Head: atraumatic Neck: supple Cardiovascular: regular rate/rhythm Respiratory: normal breath sounds, chest non-tender, no respiratory distress, lungs clear Abdomen: normal bowel sounds, soft, non-tender Extremities: no edema Current Medications: Current Medications Sig/Isaiah Start time Last Medication Dose Route Stop Time Status Admin Acetaminophen 1,000 MG Q8 02/19 1400 DC 02/20 IV 02/20 0601 0605 Amlodipine Besylate 10 MG BID 02/19 2200 CAN PO Amlodipine Besylate 5 MG BID 02/19 2200 AC 02/20 PO 0631 Aspirin 162 MG BID 02/19 2200 AC 02/20 PO 0948 Atorvastatin Calcium 40 MG BID 02/19 2200 AC 02/20 PO 0949 Cefazolin Sodium 1,000 MG IQ8 02/19 1600 DC 02/19 IV 02/20 0001 2303 Dextrose/Sodium 1,000 ML .Q20H 02/19 141 DC 02/19 Chloride IV 1452 Docusate Sodium 100 MG BID 02/19 220 AC 02/20 PO 0949 Famotidine 20 MG DAILY 02/20 1000 AC 02/20 PO 0949 Hydromorphone HCl 2 MG Q4P PRN 02/19 1415 AC 02/20 PO 0948 Hydromorphone HCl 4 MG Q4P PRN 02/19 1415 AC 02/20 PO 1507 Labetalol HCl 300 MG BID 02/19 2200 DC 02/19 PO 1642 Labetalol HCl 300 MG BID 02/19 2200 CAN PO Labetalol HCl 150 MG BID 02/19 2200 AC 02/20 PO 0631 Magnesium Oxide 400 MG BID 02/19 220 AC 02/20 PO 0949 Morphine Sulfate 2 MG Q2P PRN 02/19 1415 AC 02/20 IV 0634 Mycophenolate Mofetil 500 MG BID 02/20 2200 AC PO Mycophenolate Mofetil 1,000 MG BID 02/19 220 CAN PO Mycophenolate Mofetil 500 MG BID 02/19 2200 DC 02/20 PO 0608 Ondansetron HCl 4 MG Q6P PRN 02/19 1415 AC 02/19 IV 1452 Patient Medication 1 ED .STK-MED ONE 02/20 1408 [place] Teaching ED 02/20 1409 Polyethylene Glycol 17 GM DAILY 02/20 1000 AC 02/20 PO 0949 Prednisone 5 MG DAILY 02/20 1000 AC 02/20 PO 0949 Promethazine HCl 12.5 MG Q6P PRN 02/19 1415 AC IV 02/26 1014 Tacrolimus 4 MG BID 02/19 2200 CAN PO Tacrolimus 1 MG BID 02/19 2200 AC 02/20 PO 0607 Tamsulosin HCl 0.4 MG DAILY 02/19 1021 AC 02/20 PO 0949 Trimethoprim/ 1 TAB DAILY 02/20 1000 AC 02/20 Sulfamethoxazole PO 0948 Results Last 24 Hrs Lab/Yohannes Results: Laboratory Tests 02/20/17 0605: Anion Gap 6, Estimated GFR > 60, BUN/Creatinine Ratio 25.0, Glucose 119 H, Magnesium 1.7, CBC w Diff MAN DIFF ORDERED, RBC 3.41 L, MCV 91.3, MCH 30.4, RDW 14.8 H, MPV 8.1, Gran % 75.7 H, Lymphocytes % 18.4 L, Monocytes % 3.6, Eosinophils % 1.8, Basophils % 0.5, Absolute Granulocytes 2.4, Segmented Neutrophils 44, Band Neutrophils 6 H, Absolute Lymphocytes 0.6 L, Lymphocytes 33, Monocytes 16 H, Absolute Monocytes 0.1 L, Absolute Eosinophils 0.1, Absolute Basophils 0, Metamyelocytes 1, Platelet Estimate DECREASED, Hypochromic -Microcytic 1+, Anisocytosis 1+, PUBS MCHC 33.3 Attending MD Review Statement Attending Sign Off Attending Cosign Statement: I have: examined this patient, reviewed aval EMR data, discussd w/resident/PA/ WARNING COORDINATION METEOROLOGIST. Other Findings: 66 Y/O WM S/P Hip replacment with complex mdical history associated with Ankylosing Spondylitis. Meds adjusted per patient and appears to be tolerating well with stable vital signs. Clinically stable. Will continue to manage with Surgery.
[2017-02-20 08:00] VITALS: BP 118/62
[2017-02-20 08:30] LABS: ABSOLUTE BASOPHIL COUNT 0 /CUMM (0.0-0.2); ABSOLUTE EOSINOPHIL COUNT 0.1 /CUMM (0.0-0.7); ABSOLUTE GRANULOCYTE CT 2.4 /CUMM (1.4-6.5); ABSOLUTE LYMPH COUNT 0.6 /CUMM (1.2-3.4); ABSOLUTE MONOCYTE COUNT 0.1 /CUMM (0.10-0.60); BASOPHIL % 0.5 % (0.0-2.0); EOSINOPHIL % 1.8 % (0-5); GRANULOCYTE % 75.7 % (42.2-75.2); HEMATOCRIT 31.2 % (42-52); MEAN CORPUSCULAR HGB 30.4 PG (27.0-31.0); MEAN CORPUSCULAR HGB CONC 33.3 G/DL (33.0-37.0); MEAN CORPUSCULAR VOLUME 91.3 FL (80.0-94.0); MEAN PLATELET VOLUME 8.1 FL (7.4-10.4); PLATELET COUNT 139 /CUMM (130-400); RBC DISTRIBUTION WIDTH 14.8 % (11.5-14.5); RED BLOOD CELL CT 3.41 /CUMM (4.70-6.10); WHITE BLOOD CELL COUNT 3.2 /CUMM (4.8-10.8)
--- NOTE | 2017-02-20 08:36 | PN- Orthopedic ---
Subjective Subjective: The patient was seen this morning postoperatively day #1. He reports that his pain is under adequate control and has no other complaints at the current time. Objective Vital Signs and I&Os Vital Signs Date Time Temp Pulse Resp B/P B/P Pulse O2 O2 Flow FiO2 Mean Ox Delivery Rate / 0800 98.1 61 20 118/62 95 Room Air /15 0631 66 132/74 06/15 0631 66 132/74 /15 0412 98.7 66 20 132/74 98 Room Air / 0053 97.8 56 20 100/50 97 Room Air /14 2156 Room Air / 2023 97.8 60 20 130/60 100 Room Air / 1843 65 130/78 / 1843 65 130/78 / 1842 65 130/78 / 1829 97.6 52 20 120/62 97 Room Air / 1642 65 130/70 / 1615 97.7 53 20 130/64 98 Room Air / 1415 97.7 65 18 138/78 97 Nasal 1.0L Cannula Intake & Output / 1600 06/15 0800 06/15 0000 /14 1600 /14 0800 /14 0000 Intake Total 940 760 Output Total 131 681 1860 Balance -5 -210 -1200 Intake, IV 500 400 Intake, Oral 440 360 Output, 120 70 Drainage Output, Urine 076 016 4299 Patient 155 lb Weight Physical Exam: Gen.: Alert and in no obvious distress Skin: Warm and dry Extremities: Bilateral lower extremities are warm without calf tenderness or significant edema. Gross motor and sensory are intact. Surgical dressing is clean, dry, and intact. There is a drain in place holding suction with serosanguineous drainage in the collection chamber. Thigh compartments remain soft without signs of significant edema or hematoma Assessment/Plan Assessment/Plan Assessment: 66-year-old male status post right total hip arthroplasty postoperative day #1. The patient is progressing as expected and his pain is under adequate control. Recommendations: Out of bed with physical therapy patient is weightbearing as tolerated Hep-Lock IV fluids DC drain Follow-up morning laboratory studies GI and DVT prophylaxis Continue current pain regiment Incentive spirometry Strict I's and O's Continue care per primary team
[2017-02-20 11:52] VITALS: BP 112/52
[2017-02-20 16:11] VITALS: BP 128/60
--- NOTE | 2017-02-20 17:10 | NUR ---
1300- HEMOVAC REMOVED FROM R HIP THIS MORNING. OCCLUSIVE DRESSING TO R HIP WITH SMALL AMOUNT OF BLOOD. PER SURG TODD KRUSE, DRESSING NOT TO BE CHANGED AT THIS TIME IN ORDER TO MAINTAIN STERILITY OF THE SITE.
[2017-02-20 22:20] VITALS: BP 128/64
[2017-02-21 06:29] VITALS: BP 130/70
--- NOTE | 2017-02-21 07:19 | PN- Orthopedic ---
Subjective Subjective: POD#2 S/P RIGHT GLORIA NO MAJOR ISSUES OVERNIGHT DENIES CP, SOB, NO N+V TOLERATING DIET VOIDING WITHOUT DIFICULTY AMBULATING WELL WITH PT PAIN WELL CONTROLLED WITH PO PAIN MEDS Objective Vital Signs and I&Os Vital Signs Date Time Temp Pulse Resp B/P B/P Pulse O2 O2 Flow FiO2 Mean Ox Delivery Rate / 0629 98.9 79 20 130/70 97 Room Air 02/20 2220 99.5 81 20 128/64 95 Room Air 02/20 2037 67 128/60 02/20 2029 67 128/60 / 1611 99.1 67 20 128/60 98 Room Air 02/20 1152 97.4 62 20 112/52 99 Room Air 02/20 0949 61 118/62 02/20 0800 98.1 61 20 118/62 95 Room Air Intake & Output /16 0800 06/16 0000 /15 1600 /15 0800 /15 0000 /14 1600 Intake Total 360 480 820 940 760 Output Total 650 600 542 203 6414 Balance 360 -170 220 -5 -210 -1200 Intake, IV 100 500 400 Intake, Oral 360 480 720 440 360 Output, 120 70 Drainage Output, Urine 650 600 472 217 8594 Patient 155 lb Weight Physical Exam: CV: RRR LUNGS: CLEAR ABD: SOFT, +BS EXT: DRSG CHANGED, WOUND C/D/I NO CALF TENDERNESS BILAT DISTAL CMS INTACT THIGH SOFT Assessment/Plan Assessment/Plan ORTHO STABLE PLAN CONT ORTHO PLAN MAY BE D/C HOME TO DAY WITH SERVICES F/U DR ALEXANDRA SCHEDULED
--- NOTE | 2017-02-21 07:48 | PN- Medicine Consult ---
Assessment/Plan Assessment/Plan Assessment: 66-year-old man with past medical history significant for ankylosing spondylitis , status post kidney transplant August 2016, benign prostatic hyperplasia, hypertension and hyperlipidemia admitted to [facility] for Right hip replacement. Medical team is consulted for medical comanagement. Vitals overnight, patient afebrile, no tachycardia or tachypnea overnight, systolic blood pressure 120s and diastolic 70s, oxygen saturation of 95-99% on room air Labs from yesterday showed WBC count of 3.2, ANC of 2400, hemoglobin 10.4 and hematocrit 31.2, platelet count of 139, no significant electrolyte abnormality. Patient is currently status post right hip replacement day 2 Plan: Patient is admitted under surgical team for the management of folowing problems Status post right total hip replacement Current pain score 2 Continue with appropriate analgesics as per surgical team recommendations Currently on Zofran when necessary for nausea, watch for QTC prolongation if patient requires Zofran frequently Bowel regimen at all times to prevent narcotic induced constipation, patient did not have a bowel movement overnight. Since patient did not have a bowel movement after hospital admission we will suggest Dulcolax suppository DVT prophylaxis as per surgical team recommendations Patient is on regular diet Physical therapy was performed today and patient tolerated it well. I/O - 45 Encourage by mouth intake of water History of renal TRANSPLANT Patient has past medical history significant for recent renal transplant in August 2016. Currently on Tacrolimus, mycophenolate, Bactrim SS and stereoids Maintain strict input/output IV hydration discontinued History of ankylosing spondylitis Continue with appropriate Physical therapy History of hypertension Current blood pressure 120/70. Continue home dose antihypertensive medications. Hold off on antihypertensive medications if blood pressure less than 90/60. History of dyslipidemia Patient is currently on 40 mg Lipitor twice a day. Since patient does not have any medical history of coronary artery disease, moderate to low intensity statin at 40 mg daily dose should be enough. Kindly confirm the dosage. History of benign prostatic hyperplasia Continue with 0.4 mg of tamsulosin Patient is full code Patient is on pain management Diet as tolerated Problem List: 1. Status post total hip replacement, right Subjective Subjective: Subjectively, patient did not have any acute complaints overnight. He slept well. Pain is well controlled. No episodes of vomiting or dry heaves. Patient did not have a bowel movement since the day of admission. Review of Systems Constitutional: Denies: chills, fever. Cardiovascular: Denies: chest pain, palpitations. Respiratory: Denies: cough, short of breath. Gastrointestinal: Denies: abdominal pain, nausea. Genitourinary: Denies: dysuria. Musculoskeletal: Denies: back pain. Objective Last 24 Hrs of Vital Signs/I&O Vital Signs Date Time Temp Pulse Resp B/P B/P Pulse O2 O2 Flow FiO2 Mean Ox Delivery Rate 02/21 1006 120/70 02/21 0749 80 120/70 02/21 0749 80 120/70 02/21 0629 98.9 79 20 130/70 97 Room Air 02/20 2220 99.5 81 20 128/64 95 Room Air 02/20 2037 67 128/60 02/20 2029 67 128/60 02/20 1611 99.1 67 20 128/60 98 Room Air Intake & Output 02/21 1600 02/21 0800 02/21 0000 Intake Total 360 480 Output Total 650 Balance 360 -170 Intake, Oral 360 480 Output, Urine 650 Physical Exam General Appearance: well developed/nourished, no apparent distress, alert, awake , comfortable Head: atraumatic Neck: normal inspection, supple Cardiovascular: regular rate/rhythm, edema Respiratory: normal breath sounds, chest non-tender, no respiratory distress, lungs clear Abdomen: normal bowel sounds, soft, non-tender Extremities: no edema, RIGHT HIP WOUND DRESSING INTACT Current Medications: Current Medications Sig/Isaiah Start time Last Medication Dose Route Stop Time Status Admin Amlodipine Besylate 5 MG BID 02/19 2200 AC 02/21 PO 0749 Aspirin 162 MG BID 02/19 2200 AC 02/21 PO 1006 Atorvastatin Calcium 40 MG BID 02/19 2200 AC 02/21 PO 1007 Docusate Sodium 100 MG BID 02/19 2200 AC 02/21 PO 1006 Famotidine 20 MG DAILY 02/20 1000 AC 02/21 PO 1006 Hydromorphone HCl 2 MG Q4P PRN 02/19 1415 AC 02/21 PO 1157 Hydromorphone HCl 4 MG Q4P PRN 02/19 1415 AC 02/21 PO 0120 Labetalol HCl 150 MG BID 02/19 2200 AC 02/21 PO 0749 Magnesium Oxide 400 MG BID 02/19 2200 AC 02/21 PO 1006 Morphine Sulfate 2 MG Q2P PRN 02/19 1415 AC 02/20 IV 2218 Mycophenolate Mofetil 500 MG BID 02/200 AC 02/21 PO 0750 Mycophenolate Mofetil 500 MG BID 02/19 2200 DC 02/20 PO 0608 Ondansetron HCl 4 MG Q6P PRN 02/19 1415 AC 02/19 IV 1452 Patient Medication 1 ED .STK-MED ONE 02/20 1408 [place] Teaching ED 02/20 1409 Polyethylene Glycol 17 GM DAILY 02/20 1000 AC 02/21 PO 1009 Prednisone 5 MG DAILY 02/20 1000 AC 02/21 PO 1006 Promethazine HCl 12.5 MG Q6P PRN 02/19 1415 AC IV 02/26 1014 Tacrolimus 1 MG BID 02/19 2200 AC 02/21 PO 0748 Tamsulosin HCl 0.4 MG DAILY 02/19 1021 AC 02/21 PO 1006 Trimethoprim/ 1 TAB DAILY 02/20 1000 AC 02/21 Sulfamethoxazole PO 1006 Results Last 24 Hrs Lab/Yohannes Results: None
--- NOTE | 2017-02-21 11:37 | NUR ---
SHIFT NOTE: PATIENT DOING WELL, AT THIS TIME JUST FINISHED WALKING WITH PHYSICAL THERAPY, IN BATHROOM WASHING UP WITH , PAIN UNDER CONTROL AT THIS TIME, WILL MONITOR APPROPRAITE, WILL GO IN CHAIR AFTER FINISHED IN BATHROOM, WILL MAINTAIN SAFETY AND COMFORT.
--- NOTE | 2017-02-21 12:05 | NUR ---
PATIENT WAS IN INCREASED PAIN AFTER WORKING WITH PHYSICAL THERAPY, SPOKE WITH DR CARRILLO, AND SECOND DOSE OF 2MG PO DILAUDID GIVEN TO MAKE 4 MG TOTAL, WILL CONTINUE TO MONITOR PAIN APPROPRAITE.
[2017-02-21 14:44] VITALS: BP 114/58
--- NOTE | 2017-02-21 19:42 | NUR ---
PT GIVEN SUPPOSITORY WITH RELIEF, PT HAD SMALL BM AND FEELS LIKE BOWEL PROGRESS IS MOVING. PAIN IS MINIMAL FOR PT, MEDICATED PER EMAR. +PULSES, +CMS, ICE REMAINS IN PLACE. PT STATES HE IS READY FOR DISCHARGE. CONFIRMED WITH SURGICAL PA, ORDER PLACED. IV DC'D, ELIZABETH STOCKINGS IN PLACE. PT MEDICATED WITH APPROPRIATE MEDICATIONS PER EMAR BEFORE THIS RN LEFT. DISCHARGE PAPEWORK REVIEWED WITH PT AND AT BEDSIDE. MEDICATIONS CORRECT IN CMR. PT AND HAVE NO FURTHER QUESTIONS. APPT IN 6 WEEKS ALREADY SCHEDULED WITH MD ALEXANDRA. PT GIVEN BAG WITH EXTRA DRY DRESSINGS AND TAPE, HIP KIT, AND PRESCRIPTIONS PICKED UP IN PHARMACY PRIOR TO CLOSING. REPORT PASSED TO NEXT SHIFT RN WHILE PT AWAITS RIDE.
[2017-02-21 19:51] VITALS: BP 144/76
== END 2017-02-21 19:15 | disposition home health service (06) | DRG 470 ==
LOC: 2NA 05:17 → SDA 05:17 → ENRESERV 13:02 → ENTRNSPT 13:52 → EDTRNSPTSTS 13:58 → 2NA 14:06 → CMPTRNSPT 14:23 → 2NA 02-20 09:48
PROVIDERS: Physician Assistant Surgical; ADMIT Orthopaedic Surgery
PROC: 0SR904A Replacement of Right Hip Joint with Ceramic on Polyethylene Synthetic Substitute, Uncemented, Open Approach (ICD-10-PCS; principal; 2017-02-19)
DX: M87.851 Other osteonecrosis, right femur (principal); Z94.0 Kidney transplant status; I10 Essential (primary) hypertension; N40.0 Benign prostatic hyperplasia without lower urinary tract symptoms; E78.5 Hyperlipidemia, unspecified; M45.9 Ankylosing spondylitis of unspecified sites in spine; G47.33 Obstructive sleep apnea (adult) (pediatric)
CPT/HCPCS: 2NASP; 36415; 73502-RT; 82436; 88304; 97110-GO; 97116-GO; 97161-GP; 97530-GO; C9399; J0131; J0690; J0735; J1720; J2405; J2550; J3490; J7042; J7512; J7517